=== PATIENT | male | born 1995 | race Two or more races ===

== ENCOUNTER 2017-02-03 14:36 | Emergency (ER) | payer SELFPAY ==
[2017-02-03 14:53] VITALS: BP 121/64; PULSE 90; TEMP 97.5; BMI 25.7
--- NOTE | 2017-02-03 15:34 | PDOC ---
History of Present Illness - General Chief Complaint: Abscess Boil Stated Complaint: BOIL Time Seen by Provider: 02/03/17 15:05 History Source: Patient Exam Limitations: No Limitations - History of Present Illness Initial Comments: 02/03/17 15:29 21 yr male with abscess to left buttock for 2 weeks getting worse. 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 Severity: Yes: moderate Past History - Past Medical History Allergies/Adverse Reactions: Allergies Allergy/AdvReac Type Severity Reaction Status Date / Time No Known Allergies Allergy Verified 02/03/17 14:50 Home Medications: Ambulatory Orders Oxycodone HCl/Acetaminophen [Percocet 5-325 mg Tablet] 1 - 2 tab PO Q6H PRN #10 tab MDD 8 02/03/17 Sulfamethoxazole/Trimethoprim [Bactrim Ds -] 1 tab PO BID #14 tablet 02/03/17 Other medical history: DENIES. - Psycho/Social/Smoking Cessation Hx Anxiety: No Suicidal Ideation: No Smoking History: Current every day smoker Number of Cigarettes Smoked Daily: 20 Information on smoking cessation initiated: No Hx Alcohol Use: Yes Drug/Substance Use Hx: No Substance Use Type: Alcohol *Physical Exam - Vital Signs Last Vital Signs Temp Pulse Resp BP Pulse Ox 97.5 F L 90 18 121/64 99 02/03/17 14:50 02/03/17 14:50 02/03/17 14:50 02/03/17 14:50 02/03/17 14:50 - Physical Exam General Appearance: Yes: Nourished, Appropriately Dressed HEENT: positive: EOMI, SPEEDY, Normal ENT Inspection Neck: positive: Supple. negative: Tender Respiratory/Chest: positive: Lungs Clear, Normal Breath Sounds Cardiovascular: positive: Regular Rhythm, Regular Rate Gastrointestinal/Abdominal: positive: Normal Bowel Sounds, Soft Musculoskeletal: positive: Normal Inspection Extremity: positive: Normal Capillary Refill, Normal Inspection, Normal Range of Motion Integumentary: positive: Normal Color, Dry, Warm, Other (left buttock with abscess ) Neurologic: positive: Fully Oriented, Alert, Normal Mood/Affect, Normal Response , Motor Strength 5/5 Procedures - Incision and Drainage I&D Site: Left: Buttock (abscess with fluctuance [id number] ) Betadine cleansed: Yes Anesthesia: 1% Lidocaine Volume(ml): 6 Blade Size: 10 Attempts: 1 Complications: none Dressing: Yes Progress: 02/03/17 15:49 copious amounts of pus returned pt tolerated well Medical Decision Making - Medical Decision Making 02/03/17 15:50 cc: abscess to left buttock no fever, mild redness around the area will drain and place on Bactrim and percocet for pain strict follow up with surgeon as needed return to ER if worse *DC/Admit/Observation/Transfer Diagnosis at time of Disposition: Abscess - Discharge Dispostion Disposition: HOME Condition at time of disposition: Improved - Prescriptions Prescriptions: Sulfamethoxazole/Trimethoprim [Bactrim Ds -] 1 tab PO BID #14 tablet Oxycodone HCl/Acetaminophen [Percocet 5-325 mg Tablet] 1 - 2 tab PO Q6H PRN #10 tab MDD 8 PRN Reason: Severe Pain - Referrals Referrals: Sangita Carlos MD [Staff Physician] - - Patient Instructions Additional Instructions: take the antibiotic as prescribed and take the pain medication as prescribed frequent warm moist compresses to the area follow with the surgeon Dr. Carlos for follow up return to ER if any worsening symptoms
== END 2017-02-03 15:36 | disposition home or self-care (01) ==
LOC: JERFT 14:36
PROC: 0H98XZZ Drainage of Buttock Skin, External Approach (ICD-10-PCS; principal; 2017-02-03)
DX: L02.31 Cutaneous abscess of buttock (principal)
CPT/HCPCS: 99281-25